=== PATIENT | female | born 1985 | race Caucasian/White ===

== ENCOUNTER 2021-02-18 21:38 | Emergency (ER) | payer OTHER ==
[~2021-02-18] VITALS: Ht 165.1 cm; Wt 50.0 kg
--- NOTE | 2021-02-18 21:55 | EKG ---
[address] [address] Test Date: 2021-02-18 Test Time: 21:48:01 Pat Name: EMILIANA MEEKS Department: Room: Gender: F Systems Program Manager: : 1985 Requested By: BIRDIE TALBERT Order Number: [id number] Reading MD: Measurements Intervals [place] Rate: 100 P: 44 MI: 138 QRS: 53 QRSD: 84 T: 61 QT: 352 QTc: 457 Interpretive Statements SINUS RHYTHM NO SPECIFIC ECG ABNORMALITIES RI6.02 No previous ECG available for comparison
--- NOTE | 2021-02-18 22:08 | PHYS DOC ---
Adult General Chief Complaint Chief Complaint: CHEST PAIN HPI HPI Patient is an otherwise healthy 35-year-old female, with no medical problems, on no medications, who just moved here for the and presents with a chief complaint of weird feeling in her chest. States that little over 2 weeks ago oswald arredondo got back from [place] and since then has had this intermittent weird feeling right behind her sternum, dull and achy in nature, with no noticeable aggravating or alleviating factors. Denies any dyspnea on exertion, orthopnea, PND or edema. Denies any recent illnesses, fevers, chest pain, shortness of breath, abdominal pain, nausea, vomiting, dysuria, hematuria, blood in the stool or diarrhea. Denies any alcohol or drug use. Review of Systems Review of Systems Review of systems otherwise on remarkable except notable in HPI Physical Exam Physical Exam Constitutional: Well developed, well nourished, no acute distress, non-toxic appearance. [] HENT: Normocephalic, atraumatic, bilateral external ears normal, oropharynx moist, no oral exudates, nose normal. [] Eyes: conjunctiva normal, no discharge. [] Neck: Normal range of motion, no tenderness, supple, no stridor. [] Cardiovascular:Heart rate regular rhythm, no murmur [] Lungs & Thorax: Bilateral breath sounds clear to auscultation [] Abdomen: soft, no tenderness, no masses, no pulsatile masses. [] Skin: Warm, dry, no erythema, no rash. [] Back: no CVA tenderness. [] Extremities: No tenderness, no cyanosis, no clubbing, ROM intact, no edema. [] Neurologic: Alert and oriented X 3, no focal deficits noted. [] Psychologic: Affect normal, judgement normal, mood normal. [] EKG EKG [] Radiology/Procedures Radiology/Procedures [] CHEST 1V INDICATION: chest pressure COMPARISON STUDY: None. FINDINGS: Lungs: Normal lung volume. No pulmonary mass or consolidation. The tracheobronchial tree and hilar structures are normal. Pleura: No pleural effusion or pneumothorax. Heart and Mediastinum: The cardiomediastinal silhouette is normal. The great vessels of the thorax are normal. Bones and Soft Tissues: The bones and soft tissues are within normal limits. IMPRESSION: No acute cardiopulmonary process. Electronically signed by: Steve Abdullahi MD (02/18/2021 10:27 PM) [facility] Heart Score C/O Chest Pain: Yes HEART Score for Chest Pain: HEART Score for Chest Pain Response (Comments) Value History Slighlty/Non-Suspicious 0 ECG Normal 0 Age < 45 0 Risk Factors No Risk Factors 0 Troponin < Normal Limit 0 Total 0 Risk Factors: Risk Factors: DM, Current or recent (<one month) smoker, HTN, HLP, family history of CAD, obesity. Risk Scores: Risk Factors: DM, Current or recent (<one month) smoker, HTN, HLP, family history of CAD, obesity. Course & Med Decision Making Course & Med Decision Making Patient is a 35-year-old female who presents with greater than 2 weeks of intermittent discomfort in the middle of her chest Vital signs notable for sinus tachycardia. Physical exam noted above. EKG noted above with no STEMI or signs of ischemia. Troponin normal. Chest x-ray not concerning. Troponin normal. D-dimer normal. Patient vital signs normalized while in the ED could be secondary to anxiety. Discussed all findings with family and recommended follow-up as soon as possible with primary care physician. Given contact information of local primary care physician if they could get into their clinic. Gave return precautions to the ED. Family grateful, verbalized understanding and agreed with plan of discharge. [] Dragon Disclaimer Dragon Disclaimer This electronic medical record was generated, in whole or in part, using a voice recognition dictation system. Departure Departure: Impression: Primary Impression: Chest discomfort Disposition: HOME / SELF CARE / HOMELESS Condition: GOOD Referrals: NON,STAFF (PCP) HANK MULTANI MD Patient Instructions: Chest Pain (Nonspecific), Diet for Gastroesophageal Reflux Disease, Adult, [id number], Gastritis, Child Additional Instructions: Thank you for coming into the emergency department tonight and allowing us to take care of you. Please read the attached information carefully to go back over things we discussed. Please continue an [id number] heartburn medicine until you see your primary care physician. Soon as you can, please call your primary care physician to set up a follow-up visit to discuss your ED visit. If you cannot get into your primary care physician or want to establish care with another local primary care physician please call the number provided. Please come back to the ED with new or concerning symptoms as discussed. BIRDIE TALBERT MD Feb 18, 2021 22:07
[2021-02-18] MEDS ORDERED: LIDO:MAALOX 1:1 20 ML SINGLE DOSE. PO ONE (22:15)
[2021-02-18 22:24] VITALS: BP 148/96
--- NOTE | 2021-02-18 22:29 | RAD ---
XR CHEST 1V INDICATION: chest pressure COMPARISON STUDY: None. FINDINGS: Lungs: Normal lung volume. No pulmonary mass or consolidation. The tracheobronchial tree and hilar st ructures are normal. Pleura: No pleural effusion or pneumothorax. Heart and Mediastinum: The cardiomediastinal silhouette is normal. The great vessels of the thorax ar e normal. Bones and Soft Tissues: The bones and soft tissues are within normal limits. IMPRESSION: No acute cardiopulmonary process. Electronically signed by: Steve Abdullahi MD (02/18/2021 10:27 PM) [facility]
== END 2021-02-18 23:15 | disposition home or self-care (01) ==
LOC: ER 21:38
DX: R07.89 Other chest pain (principal)
CPT/HCPCS: 36415; 71045; 81025; 84484; 85379; 93005; 99285-25